=== PATIENT | male | born 1940 | race Caucasian/White ===

== ENCOUNTER 2017-07-25 12:45 | Outpatient (CLI) | payer MEDICARE ==
--- NOTE | 2017-07-25 16:11 | CT ---
EXAM: CERVICAL SPINE CT WITHOUT CONTRAST 07/25/17 HISTORY: Neck fusion ten years ago. 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 TECHNIQUE: Cervical spine CT is performed without contrast. reformatted images are submitted for interpretation . 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 Straightening of the normal cervical lordosis identified. 3.1 mm of anterolisthesis of C4 upon C5, 3 mm of anterolisthesis of C5 upon C6. There is a cervical fusion plate with bilateral transpedicular scars at C6-C7 without perihardware l ucency. Bone plug at the C6-C7 level is noted. Coronal reformatted images demonstrate appropriate alignment of the lateral masses of C1 and C2 as w ell as the intra-articular facets. Odontoid process is intact. Visualized soft tissue neck structures are unremarkable. Mild atherosclerotic disease in both caroti d arteries is noted. There is bilateral apical pleural thickening. Central spinal canal is patent. Varying degrees of for aminal narrowing due to degenerative change. No prevertebral soft tissue swelling or epidural hemato ma. Cervical spine vertebral body height is maintained. No fracture. Limited evaluation of the contents of central canal and neural foramina due to technique. C2-C3: No high grade central canal stenosis or high grade foraminal narrowing. C3-C4: No high grade central canal stenosis. Mild bilateral foraminal narrowing due to degenerative change of the posterior elements. C4-C5: Broad based disc osteophyte complex without high grade central canal stenosis. Degenerative c hange in bilateral uncovertebral joints and bilateral facet hypertrophy result in moderate to severe bilateral foraminal narrowing. C5-C6: Broad based disc osteophyte complex results in mild central canal stenosis. Degenerative welsh ges in the right uncovertebral joint results in moderate to severe right foraminal narrowing. Mild l eft foraminal narrowing due to degenerative change of the uncovertebral joint. C6-C7: Broad based osteophyte ridge with mild central canal stenosis. Degenerative changes in bilate ral uncovertebral joints results in moderate bilateral foraminal narrowing. C7-T1: No high grade central canal stenosis. Neural foramina are mildly narrowed. IMPRESSION: 1. Cervical fusion changes as above. 2. Varying degrees of central canal stenosis and foraminal narrowing as above. 3. Incomplete segmentation of C3-C4, congenital variant. POS: [facility]
== END 2017-07-25 12:46 | disposition home or self-care (01) ==
LOC: TBSIIMAG 12:45
PROVIDERS: ATTEND Neurological Surgery
DX: M54.12 Radiculopathy, cervical region (principal); M48.02 Spinal stenosis, cervical region; M99.51 Intervertebral disc stenosis of neural canal of cervical region; Z98.1 Arthrodesis status
CPT/HCPCS: 72125

== ENCOUNTER 2017-08-21 05:41 | Day surgery (SDC) | payer MEDICARE ==
[2017-08-20 14:44] VITALS: BMI 30.5
--- NOTE | 2017-08-21 03:48 | HP ---
HISTORY OF PRESENT ILLNESS: Mr. Quick returns after having CT scan performed on cervical spine, re ports accident, neck pain, restricted range of motion and pain which radiates to the interscapular s pace. He has had a prior cervical diskectomy and fusion at C6-C7 and autofused at C3-C4. His main issue now is adjacent to the old surgical site degenerative disk disease. Our plan is to move forward with surgical intervention which would be a single level ACDF at C5-C6. PAST MEDICAL HISTORY: Significant for hypertension, prostate disease, hypercholesterolemia, and gas troesophageal reflux disease. CURRENT MEDICATIONS: Aspirin, pantoprazole, sucralfate, finasteride, tamsulosin, hydrochlorothiazid e, losartan, amlodipine, clonidine and pravastatin. PAST SURGICAL HISTORY: Back surgery and ACDF. ALLERGIES: To PENICILLIN. PHYSICAL EXAMINATION: The patient is alert and oriented x3. Gait is normal, no ataxia limited rang e of motion of the neck, 5/5 strength in the upper extremities bilaterally. ASSESSMENT: Neck pain and degenerative disk disease. PLAN: Dr. Darling met with the patient, reviewed imaging and ultimately advocated for C5-C6 ACDF. He explained to the patient the risks, benefits, and alternatives to the procedure. The patient expre ssed understanding and would like to move forward with surgery as discussed. I do believe the patie nt is mentally competent and capable of making medical decisions for himself and we will move forwar d with surgery as planned.
[2017-08-21] MEDS ORDERED: Thrombin 5000 UNITS/5 ML VIAL ONE (06:17)
[2017-08-21] MEDS ORDERED: Lidocaine 2% w/Epinephrine 1:200K 20 ML VIAL ONE (06:17)
[2017-08-21] MEDS ORDERED: Levofloxacin 500 mg/D5W 100 ml Premix Bag ONE (06:29)
[2017-08-21] MEDS ORDERED: Clindamycin/D5W 900 mg/50 ml Premix Bag ONE (06:29)
[2017-08-21 06:44] LABS: #Eosinphils 0.2 thou/uL (0.0-0.7); #Lymphocytes 1.5 thou/uL (1.20-3.40); #Monocytes 0.6 thou/uL (0.11-0.59); #Neutrophils 4.3 thou/uL (1.40-6.50); %Basophils 0.7 % (0.0-1.0); %Eosinophils 3.6 % (0.0-10.0); %Monocytes 8.4 % (0.0-10.0); Hematocrit 43.2 % (42.0-52.0); Mean Platelet Volume 8.8 fL (7.4-10.4); Red Blood Cell (RBC) Count 4.42 mill/uL (4.70-6.10); White Blood Cell (WBC) Count 6.7 thou/uL (4.8-10.8)
[2017-08-21 07:01] LABS: Anion Gap 16 mmol/L (10-20); BUN (Urea Nitrogen) 20 mg/dL (8.4-25.7); Calc. Creatinine Clearance 81 mL/min (70-130); Calcium 9.6 mg/dL (7.8-10.44); Carbon Dioxide 24 mmol/L (23-31); Chloride 104 mmol/L (98-107); Estimated GFR-MDRD 58
[2017-08-21] MEDS ORDERED: Fentanyl 250 MCG/5 ML VIAL ONE (07:02)
[2017-08-21] MEDS ORDERED: ePHEDrine/0.9% NaCl/PF SYRINGE 50 mg/10 ml ONE (07:17)
[2017-08-21] MEDS ORDERED: Dexamethasone 20 MG/5 ML VIAL ONE (07:17)
[2017-08-21] MEDS ORDERED: Succinylcholine Chloride 20 MG/ML 10 ml SYRINGE FS ONE (07:17)
[2017-08-21] MEDS ORDERED: Propofol 200 MG/20 ML VIAL ONE (07:17)
[2017-08-21] MEDS ORDERED: Lidocaine 1% PF 5 ML VIAL ONE (07:17)
[2017-08-21] MEDS ORDERED: PHENYLEPHRINE-NS 100 MCG/ML 10 ML SYRINGE ONE (07:17)
[2017-08-21] MEDS ORDERED: Ondansetron HCl/PF 4 MG/2 ML Vial ONE (07:17)
--- NOTE | 2017-08-21 08:46 | OP ---
DATE OF PROCEDURE: 08/21/2017 SURGEON: Dr. Celio Darling FLEET TECHNICIAN: Arvind Ron PA-C INDICATION: Pain. PREOPERATIVE DIAGNOSES: Degenerative disc disease, neck pain and cervical radiculopathy. PROCEDURE: Removal of anterior instrumentation and anterior cervical discectomy and fusion at C5-6. ANESTHESIA: General. PROCEDURE IN DETAIL: The patient was brought into the operating room and placed under general anest hesia. He was placed on the table in a supine position. A transverse incision was planned over the lateral aspect of the neck. Dr. Delano Calvin was responsible for the surgical exposure which will be dictated in a separate operative note. Once we gained access to the prevertebral space a large a nterior osteophyte was identified which was removed. The patient's anterior cervical plate at the l evel adjacent to the current operative site was identified and removed in total. We then redirected our attention to the C5-6 disc space where all disk material as well as anterior and posterior oste ophytes were removed. After complete decompression, a 6 mm lordotic PEEK cage packed with allograft and autograft material was placed in the interbody space. An anterior cervical plate was then fash ioned in front of the spine and secured with a total of 4 fixed screws. Midline and lateral structu res were then inspected and found to be free from significant trauma. The wound was irrigated. Hem ostasis was maintained throughout. The wound was then closed in anatomic layers and a pressure dres sing was applied. There were no known procedural complications.
[2017-08-21] MEDS ORDERED: Tamsulosin HCl 0.4 MG CAP ONE (09:09)
[2017-08-21] MEDS ORDERED: Tamsulosin HCl 0.4 MG CAP PO SCH (09:15)
--- NOTE | 2017-08-22 09:12 | OP ---
DATE OF PROCEDURE: 08/21/2017 PREOPERATIVE DIAGNOSES: 1. Cervical myelopathy. 2. Need for anterior approach for anterior cervical disk fusion surgery. SURGEON: Dr. Néstor Calvin. GUARD CHIEF: PATRICK Hammond ANESTHESIA: GETA with laryngeal monitoring tube. ESTIMATED BLOOD LOSS: Less than 10 mL. COMPLICATIONS: None. PROCEDURE: The patient taken to the operating room and placed supine on the table. General endotra cheal anesthesia was obtained by the Anesthesia staff. The laryngeal electrodes were confirmed via direct laryngoscopy to be between the vocal cords. The tube was then secured to the midline of the upper lip. The patient was positioned for proper anterior cervical disk fusion surgery. Following this, the patient was prepped and draped in standard surgical fashion, 5 mL of 1% lidocaine with 1:1 00,000 epinephrine was injected into the previous skin incision in a horizontal fashion overlying 2 cm above the clavicle. Incision was made with a 10 blade and carried down through skin, subcutaneou s tissue, and the platysmal layer. Following this, subplatysmal flaps were elevated superiorly and inferiorly. The sternocleidomastoid muscle was identified staying just anterior to the sternocleido mastoid fascia. The vascular contents of the neck were dissected and retracted laterally as the lar yngeal structures and the recurrent laryngeal nerve were retracted medially. Adequate exposure of t he disk space was provided to Dr. Joss Darling. This case was then turned over to his care.
--- NOTE | 2017-08-23 15:56 | EKG ---
Test Reason : PREOP Blood Pressure : / mmHG Vent. Rate : 076 BPM Atrial Rate : 076 BPM P-R Int : 174 ms QRS Dur : 100 ms QT Int : 390 ms P-R-T Axes : 068 -32 062 degrees QTc Int : 438 ms Normal sinus rhythm Left axis deviation Abnormal ECG No previous ECGs available Confirmed by DR. Marítn PALOMO ([id number]) on 08/23/2017 3:56:21 PM Referred By: SHIVA Confirmed By:DR. Martín PALOMO
== END 2017-08-21 11:58 | disposition home or self-care (01) ==
LOC: SDC 05:41
PROVIDERS: ATTEND Neurological Surgery
PROC: 0RG10A0 Fusion of Cervical Vertebral Joint with Interbody Fusion Device, Anterior Approach, Anterior Column, Open Approach (ICD-10-PCS; principal; 2017-08-21)
DX: M50.122 Cervical disc disorder at C5-C6 level with radiculopathy (principal); M25.78 Osteophyte, vertebrae; N40.0 Benign prostatic hyperplasia without lower urinary tract symptoms; I10 Essential (primary) hypertension; E78.00 Pure hypercholesterolemia, unspecified; K21.9 Gastro-esophageal reflux disease without esophagitis; Z79.82 Long term (current) use of aspirin; Z79.899 Other long term (current) drug therapy; Z88.0 Allergy status to penicillin; Z98.1 Arthrodesis status; Z96.1 Presence of intraocular lens; Z90.49 Acquired absence of other specified parts of digestive tract; Z98.890 Other specified postprocedural states; Z87.891 Personal history of nicotine dependence; Z86.14 Personal history of Methicillin resistant Staphylococcus aureus infection
CPT/HCPCS: 36415; 76001; 80048; 85025; 93005; 93010; C1713; J1100; J1956; J2001; J2405; J2704; J3010; J3490

== ENCOUNTER 2021-03-02 08:24 | Inpatient (IN) | payer MEDICARE ==
[2021-03-02 09:21] LABS: #Eosinphils 0.1 thou/uL (0.0-0.7); #Lymphocytes 1.4 thou/uL (1.20-3.40); #Monocytes 0.5 thou/uL (0.11-0.59); #Neutrophils 6.6 thou/uL (1.40-6.50); %Basophils 0.4 % (0.0-1.0); %Eosinophils 1.7 % (0.0-10.0); %Lymphocytes 16.2 % (21.0-51.0); %Monocytes 5.5 % (0.0-10.0); %Neutrophils 76.3 % (42.0-75.0); Hemoglobin 15.3 g/dL (14.0-18.0); Mean Corpuscular HGB CONC 33.1 g/dL (32.0-36.0); Mean Corpuscular Hemoglobin 32.3 pg (27.0-31.0); Mean Corpuscular Volume 97.6 fL (78.0-98.0); Mean Platelet Volume 9.3 fL (7.4-10.4); Platelet Count 233 thou/uL (130-400); RBC Distribution Width 12.1 % (11.5-14.5); Red Blood Cell (RBC) Count 4.73 mill/uL (4.70-6.10); White Blood Cell (WBC) Count 8.7 thou/uL (4.8-10.8)
[2021-03-02 09:44] LABS: ALT (SGPT) 12 U/L (8-55); AST (SGOT) 13 U/L (5-34); Albumin 4.4 g/dL (3.4-4.8); Alkaline Phosphatase 84 U/L (40-110); Anion Gap 15 mmol/L (10-20); BUN (Urea Nitrogen) 26 mg/dL (8.4-25.7); Bilirubin, Total 0.5 mg/dL (0.2-1.2); Calc. Creatinine Clearance 0 mL/min (70-130); Calcium 9.6 mg/dL (7.8-10.44); Carbon Dioxide 21 mmol/L (23-31); Chloride 109 mmol/L (98-107); Globulin 2.8 g/dL (2.4-3.5); Glucose 106 mg/dL (83-110); Lipase 24 U/L (8-78); Protein, Total 7.2 g/dL (5.8-8.1); Sodium 141 mmol/L (136-145)
[2021-03-02] MEDS ORDERED: Ondansetron PF 4 MG/2 ML Vial IVP PRN (12:20)
[2021-03-02] MEDS: Sodium Chloride 0.9% 1,000 ML IV SCH ×2 (13:15→21:12)
[2021-03-02] MEDS ORDERED: Acetaminophen 325 MG TAB PO PRN (13:39)
[2021-03-02] MEDS ORDERED: Ondansetron ODT 4 MG TAB PO PRN (13:42)
[2021-03-02] MEDS ORDERED: Iopamidol-370 76% 500 ML 1 ML ONE (14:47)
[2021-03-02 15:29] VITALS: BMI 26.9
[2021-03-02 18:50] LABS: SARS-CoV-2 PCR by NAA Not Detected (NotDetected)
[2021-03-03 05:49] LABS: #Basophils 0.1 thou/uL (0.0-0.2); #Eosinphils 0.2 thou/uL (0.0-0.7); #Lymphocytes 1.7 thou/uL (1.20-3.40); #Monocytes 0.5 thou/uL (0.11-0.59); #Neutrophils 3.7 thou/uL (1.40-6.50); %Eosinophils 3.8 % (0.0-10.0); %Lymphocytes 27.3 % (21.0-51.0); %Monocytes 7.5 % (0.0-10.0); %Neutrophils 60.5 % (42.0-75.0); Hemoglobin 13.7 g/dL (14.0-18.0); Mean Corpuscular HGB CONC 32.5 g/dL (32.0-36.0); Mean Corpuscular Hemoglobin 31.4 pg (27.0-31.0); Mean Corpuscular Volume 96.6 fL (78.0-98.0); Mean Platelet Volume 9.5 fL (7.4-10.4); Platelet Count 192 thou/uL (130-400); Red Blood Cell (RBC) Count 4.37 mill/uL (4.70-6.10)
[2021-03-03] MEDS: Sodium Chloride 0.9% 1,000 ML IV SCH ×4 (06:02→20:58)
[2021-03-03 06:07] LABS: Anion Gap 11 mmol/L (10-20); BUN (Urea Nitrogen) 20 mg/dL (8.4-25.7); Calc. Creatinine Clearance 73 mL/min (70-130); Calcium 8.9 mg/dL (7.8-10.44); Carbon Dioxide 21 mmol/L (23-31); Chloride 112 mmol/L (98-107); Glucose 79 mg/dL (83-110); Potassium 4.4 mmol/L (3.5-5.1); Sodium 140 mmol/L (136-145)
[2021-03-03] MEDS: Cholestyramine/Aspartame 4 gm Packet PO SCH ×2 (07:44→16:43)
[2021-03-03] MEDS ORDERED: MD-Gastroview 120 ML BOT ONE (11:24)
[2021-03-04 06:24] LABS: Anion Gap 13 mmol/L (10-20); BUN (Urea Nitrogen) 18 mg/dL (8.4-25.7); Calc. Creatinine Clearance 76 mL/min (70-130); Calcium 8.9 mg/dL (7.8-10.44); Carbon Dioxide 20 mmol/L (23-31); Chloride 115 mmol/L (98-107); Glucose 77 mg/dL (83-110); Potassium 3.7 mmol/L (3.5-5.1); Sodium 144 mmol/L (136-145)
[2021-03-04 06:39] LABS: #Basophils 0.1 thou/uL (0.0-0.2); #Eosinphils 0.3 thou/uL (0.0-0.7); #Lymphocytes 1.3 thou/uL (1.20-3.40); #Monocytes 0.5 thou/uL (0.11-0.59); #Neutrophils 4.7 thou/uL (1.40-6.50); %Basophils 0.8 % (0.0-1.0); %Eosinophils 4.4 % (0.0-10.0); %Lymphocytes 18.5 % (21.0-51.0); %Monocytes 7.7 % (0.0-10.0); %Neutrophils 68.6 % (42.0-75.0); Hemoglobin 14.4 g/dL (14.0-18.0); Mean Corpuscular HGB CONC 33.7 g/dL (32.0-36.0); Mean Corpuscular Hemoglobin 32.8 pg (27.0-31.0); Mean Corpuscular Volume 97.3 fL (78.0-98.0); Mean Platelet Volume 9.7 fL (7.4-10.4); Platelet Count 187 thou/uL (130-400); Red Blood Cell (RBC) Count 4.38 mill/uL (4.70-6.10); White Blood Cell (WBC) Count 6.8 thou/uL (4.8-10.8)
[2021-03-04] MEDS: Cholestyramine/Aspartame 4 gm Packet PO SCH (09:22)
[2021-03-04] MEDS: Sodium Chloride 0.9% 1,000 ML IV SCH (20:19)
[2021-03-05] MEDS: Cholestyramine/Aspartame 4 gm Packet PO SCH (08:00)
[2021-03-05] MEDS ORDERED: Simethicone Chewable 80 MG TAB PO PRN (13:00)
[2021-03-05 13:02] VITALS: TEMP 97.7
[2021-03-05] MEDS: Sodium Chloride 0.9% 1,000 ML IV SCH (13:42)
[2021-03-05 14:41] VITALS: BP 154/72
[2021-03-05] MEDS ORDERED: Senokot S 8.6-50 MG TAB PO SCH (21:00)
== END 2021-03-05 15:41 | disposition home or self-care (01) | DRG 392 ==
LOC: ERS 08:24 → T4-B 11:39 → OBSVTOIN 03-03 16:41
PROVIDERS: ADMIT Family Medicine; ATTEND Internal Medicine
DX: K52.9 Noninfective gastroenteritis and colitis, unspecified (principal); N17.9 Acute kidney failure, unspecified; Z20.822 Contact with and (suspected) exposure to COVID-19; I10 Essential (primary) hypertension; E78.00 Pure hypercholesterolemia, unspecified; I95.1 Orthostatic hypotension; R62.7 Adult failure to thrive; E86.0 Dehydration; K21.9 Gastro-esophageal reflux disease without esophagitis; K59.00 Constipation, unspecified; Z90.49 Acquired absence of other specified parts of digestive tract; Z88.0 Allergy status to penicillin; Z87.891 Personal history of nicotine dependence; Z68.26 Body mass index [BMI] 26.0-26.9, adult; Z79.899 Other long term (current) drug therapy
CPT/HCPCS: 36415; 74018; 74177; 74250; 80048; 80053; 83605; 83690; 85025; 87045; 87046; 87077; 87081; 87324; 87427; 87449; 87635; G0378; Q9963; Q9967; U0003; U0005

== ENCOUNTER 2021-07-03 08:51 | Outpatient (CLI) | payer MEDICARE, OTHER ==
[2021-07-03] MEDS ORDERED: Iopamidol-370 76% 500 ML 1 ML ONE (12:15)
== END 2021-07-03 08:52 | disposition home or self-care (01) ==
LOC: BICCT 08:51
PROVIDERS: ATTEND Internal Medicine
DX: R10.11 Right upper quadrant pain (principal); R19.7 Diarrhea, unspecified; K59.00 Constipation, unspecified; I70.0 Atherosclerosis of aorta; Z90.49 Acquired absence of other specified parts of digestive tract
CPT/HCPCS: 74177; 82565; Q9967

== ENCOUNTER 2022-07-26 11:31 | Outpatient (CLI) | payer MEDICARE, OTHER | END 2022-07-26 11:32 | disposition home or self-care (01) | LOC: RAD 11:31 | PROVIDERS: ATTEND Physician Assistant Medical | DX: R10.10 Upper abdominal pain, unspecified (principal); K21.9 Gastro-esophageal reflux disease without esophagitis | CPT/HCPCS: 74018 ==

== ENCOUNTER 2025-08-19 12:22 | Inpatient (IN) | payer MEDICARE, OTHER ==
[2025-08-19] MEDS ORDERED: Ketorolac Tromethamine 30 MG (1 mL) VIAL ONE (14:40)
[2025-08-19 14:56] LABS: Bacteria/HPF None Seen HPF (None Seen); CAUTI Indications for Culture Dysuria,urgency,freq; Glucose, Urine (Dipstick) Normal (Negative); Leukocyte Negative Leu/uL (Negative); Protein, Urine (Dipstick) Negative (Neg-Trace); RBC/HPF 0-3 HPF (0-3); Specific Gravity, Urine 1.009 (1.002-1.036); WBC/HPF 0-3 HPF (0-3)
[2025-08-19 14:58] LABS: Urine Culture Reflex No No
[2025-08-19 15:17] LABS: #Basophils 0.07 10x3/uL (0.0-0.2); #Eosinophils 0.36 10x3/uL (0.0-0.7); #Monocytes 0.59 10x3/uL (0.11-0.59); #Neutrophils 4.42 10x3/uL (1.40-6.50); %Basophils 1.0 % (0.0-1.0); %Eosinophils 5.2 % (0.0-10.0); %Lymphocytes 21.7 % (21.0-51.0); %Monocytes 8.4 % (0.0-10.0); %Neutrophils 63.3 % (42.0-75.0); Hematocrit 42.8 % (42.0-52.0); Hemoglobin 14.1 g/dL (14.0-18.0); Mean Corpuscular Hemoglobin 30.8 pg (27.0-31.0); Mean Corpuscular Volume 93.4 fL (78.0-98.0); Platelet Count 182 10x3/uL (130-400); Red Blood Cell (RBC) Count 4.58 mill/uL (4.70-6.10); White Blood Cell (WBC) Count 6.99 10x3/uL (4.8-10.8)
[2025-08-19] MEDS ORDERED: Ondansetron PF 4 MG/2 ML Vial ONE (15:53)
[2025-08-19] MEDS ORDERED: dilTIAZem 25 MG/5 ML VIAL ONE (17:43)
[2025-08-19 18:15] LABS: ALT (SGPT) 14 U/L (Less than 45); AST (SGOT) 25 U/L (11-34); Albumin 4.1 g/dL (3.1-4.5); Alkaline Phosphatase 64 U/L (40-110); Anion Gap 15 mmol/L (10-20); BUN (Urea Nitrogen) 22 mg/dL (8.4-25.7); Bilirubin, Total 0.6 mg/dL (0.3-1.2); Calc. Creatinine Clearance 0 mL/min (70-130); Calcium 9.4 mg/dL (7.8-10.44); Carbon Dioxide 23 mmol/L (23-31); Chloride 106 mmol/L (98-107); Globulin 2.9 g/dL (2.4-3.5); Glucose 78 mg/dL (83-110); Lipase 44 U/L (8-78); Potassium 4.0 mmol/L (3.5-5.1); Sodium 140 mmol/L (136-145)
[2025-08-19] MEDS: Pantoprazole 40 MG VIAL IVP SCH (20:32)
[2025-08-19] MEDS ORDERED: Finasteride 5 MG TAB PO SCH (21:00)
[2025-08-19] MEDS ORDERED: Simvastatin 10 MG TAB PO SCH (21:00)
[2025-08-19] MEDS: Nitroglycerin 2% Ointment 1 INCH/1 GM Packet TOP SCH (21:52)
[2025-08-20] MEDS: hydrALAZINE 20 MG/ML VIAL SLOW IVP PRN (04:03)
[2025-08-20 05:19] LABS: #Basophils 0.05 10x3/uL (0.0-0.2); #Eosinophils 0.26 10x3/uL (0.0-0.7); #Monocytes 0.75 10x3/uL (0.11-0.59); #Neutrophils 5.29 10x3/uL (1.40-6.50); %Basophils 0.7 % (0.0-1.0); %Eosinophils 3.5 % (0.0-10.0); %Lymphocytes 14.5 % (21.0-51.0); %Monocytes 10.1 % (0.0-10.0); %Neutrophils 70.8 % (42.0-75.0); Hematocrit 37.7 % (42.0-52.0); Hemoglobin 12.2 g/dL (14.0-18.0); Mean Corpuscular Hemoglobin 30.7 pg (27.0-31.0); Mean Corpuscular Volume 95.0 fL (78.0-98.0); Platelet Count 168 10x3/uL (130-400); Red Blood Cell (RBC) Count 3.97 mill/uL (4.70-6.10); White Blood Cell (WBC) Count 7.46 10x3/uL (4.8-10.8)
[2025-08-20 05:36] LABS: Anion Gap 14 mmol/L (10-20); BUN (Urea Nitrogen) 18 mg/dL (8.4-25.7); Calc. Creatinine Clearance 89 mL/min (70-130); Calcium 8.7 mg/dL (7.8-10.44); Carbon Dioxide 21 mmol/L (23-31); Chloride 108 mmol/L (98-107); Glucose 83 mg/dL (83-110); Magnesium 2.0 mg/dL (1.6-2.6); Potassium 3.9 mmol/L (3.5-5.1); Sodium 139 mmol/L (136-145)
[2025-08-20] MEDS ORDERED: MD-Gastroview 120 ML BOT ONE (07:03)
[2025-08-20] MEDS: Pantoprazole 40 MG VIAL IVP SCH (07:54)
[2025-08-20] MEDS: Enoxaparin 40 MG (0.4 mL) SYRINGE SC SCH (07:54)
[2025-08-20] MEDS: Ondansetron PF 4 MG/2 ML Vial IVP PRN (08:19)
[2025-08-20] MEDS: Acetaminophen 325 MG TAB PO PRN (12:13)
[2025-08-20] MEDS: Simvastatin 10 MG TAB PO SCH (21:18)
[2025-08-20] MEDS: Valsartan 80 MG TAB PO SCH (21:18)
[2025-08-20] MEDS: Senokot S 8.6-50 MG TAB PO SCH (21:19)
[2025-08-20] MEDS: Finasteride 5 MG TAB PO SCH (21:19)
[2025-08-21 05:25] LABS: #Basophils 0.05 10x3/uL (0.0-0.2); #Eosinophils 0.28 10x3/uL (0.0-0.7); #Monocytes 0.78 10x3/uL (0.11-0.59); #Neutrophils 4.89 10x3/uL (1.40-6.50); %Basophils 0.7 % (0.0-1.0); %Eosinophils 3.8 % (0.0-10.0); %Lymphocytes 17.8 % (21.0-51.0); %Monocytes 10.6 % (0.0-10.0); %Neutrophils 66.7 % (42.0-75.0); Hematocrit 40.2 % (42.0-52.0); Hemoglobin 13.0 g/dL (14.0-18.0); Mean Corpuscular Hemoglobin 30.6 pg (27.0-31.0); Mean Corpuscular Volume 94.6 fL (78.0-98.0); Platelet Count 173 10x3/uL (130-400); Red Blood Cell (RBC) Count 4.25 mill/uL (4.70-6.10); White Blood Cell (WBC) Count 7.34 10x3/uL (4.8-10.8)
[2025-08-21 05:39] LABS: Anion Gap 13 mmol/L (10-20); BUN (Urea Nitrogen) 21 mg/dL (8.4-25.7); Calc. Creatinine Clearance 81 mL/min (70-130); Calcium 8.9 mg/dL (7.8-10.44); Carbon Dioxide 26 mmol/L (23-31); Chloride 107 mmol/L (98-107); Glucose 95 mg/dL (83-110); Potassium 3.6 mmol/L (3.5-5.1); Sodium 142 mmol/L (136-145)
[2025-08-21] MEDS ORDERED: Senokot S 8.6-50 MG TAB PO PRN (10:03)
[2025-08-21] MEDS: Simethicone Chewable 80 MG TAB PO PRN (10:47)
[2025-08-22 05:45] LABS: #Basophils 0.06 10x3/uL (0.0-0.2); #Eosinophils 0.29 10x3/uL (0.0-0.7); #Monocytes 0.70 10x3/uL (0.11-0.59); #Neutrophils 6.16 10x3/uL (1.40-6.50); %Basophils 0.7 % (0.0-1.0); %Eosinophils 3.3 % (0.0-10.0); %Lymphocytes 17.0 % (21.0-51.0); %Monocytes 8.0 % (0.0-10.0); %Neutrophils 70.4 % (42.0-75.0); Hematocrit 41.7 % (42.0-52.0); Hemoglobin 13.5 g/dL (14.0-18.0); Mean Corpuscular Hemoglobin 30.5 pg (27.0-31.0); Mean Corpuscular Volume 94.3 fL (78.0-98.0); Platelet Count 200 10x3/uL (130-400); Red Blood Cell (RBC) Count 4.42 mill/uL (4.70-6.10); White Blood Cell (WBC) Count 8.75 10x3/uL (4.8-10.8)
[2025-08-22 06:13] LABS: Anion Gap 16 mmol/L (10-20); BUN (Urea Nitrogen) 14 mg/dL (8.4-25.7); Calc. Creatinine Clearance 101 mL/min (70-130); Calcium 8.9 mg/dL (7.8-10.44); Carbon Dioxide 24 mmol/L (23-31); Chloride 102 mmol/L (98-107); Glucose 81 mg/dL (83-110); Potassium 3.5 mmol/L (3.5-5.1); Sodium 138 mmol/L (136-145)
[2025-08-22] MEDS: Pantoprazole 40 MG DR.TAB PO SCH (09:12)
[2025-08-22] MEDS: Simethicone Chewable 80 MG TAB PO SCH (12:48)
[2025-08-22] MEDS ORDERED: Ketorolac Tromethamine 30 MG (1 mL) VIAL IVP PRN (20:12)
[2025-08-23 05:50] LABS: #Basophils 0.04 10x3/uL (0.0-0.2); #Eosinophils 0.14 10x3/uL (0.0-0.7); #Monocytes 0.86 10x3/uL (0.11-0.59); #Neutrophils 7.78 10x3/uL (1.40-6.50); %Basophils 0.4 % (0.0-1.0); %Eosinophils 1.4 % (0.0-10.0); %Lymphocytes 11.0 % (21.0-51.0); %Monocytes 8.6 % (0.0-10.0); %Neutrophils 77.9 % (42.0-75.0); Hematocrit 42.7 % (42.0-52.0); Hemoglobin 13.8 g/dL (14.0-18.0); Mean Corpuscular Hemoglobin 30.2 pg (27.0-31.0); Mean Corpuscular Volume 93.4 fL (78.0-98.0); Platelet Count 195 10x3/uL (130-400); Red Blood Cell (RBC) Count 4.57 mill/uL (4.70-6.10); White Blood Cell (WBC) Count 9.99 10x3/uL (4.8-10.8)
[2025-08-23 06:06] LABS: Anion Gap 17 mmol/L (10-20); BUN (Urea Nitrogen) 10 mg/dL (8.4-25.7); Calc. Creatinine Clearance 105 mL/min (70-130); Calcium 9.1 mg/dL (7.8-10.44); Carbon Dioxide 22 mmol/L (23-31); Chloride 106 mmol/L (98-107); Glucose 104 mg/dL (83-110); Potassium 3.3 mmol/L (3.5-5.1); Sodium 142 mmol/L (136-145)
[2025-08-23] MEDS ORDERED: Iopamidol-370 76% 500 ML MDV (1 ML CHARGE) ONE (11:13)
[2025-08-24] MEDS: Benzonatate 100 MG CAP PO SCH (09:23)
[2025-08-24] MEDS ORDERED: Iopamidol-370 76% 500 ML MDV (1 ML CHARGE) ONE (10:20)
[2025-08-24] MEDS: Furosemide 100 MG (10 mL) VIAL SLOW IVP SCH (10:25)
[2025-08-24] MEDS: Guaifenesin DM 100-10/5 ML UDCUP PO PRN (11:59)
[2025-08-24 12:19] LABS: Anion Gap 16 mmol/L (10-20); BUN (Urea Nitrogen) 11 mg/dL (8.4-25.7); Calc. Creatinine Clearance 90 mL/min (70-130); Calcium 9.2 mg/dL (7.8-10.44); Carbon Dioxide 25 mmol/L (23-31); Chloride 101 mmol/L (98-107); Glucose 90 mg/dL (83-110); Potassium 3.2 mmol/L (3.5-5.1); Sodium 139 mmol/L (136-145)
[2025-08-25 23:45] LABS: Bacteria/HPF 2+ HPF (None Seen); CAUTI Indications for Culture Dysuria,urgency,freq; Glucose, Urine (Dipstick) Normal (Negative); Leukocyte 500 Leu/uL (Negative); Protein, Urine (Dipstick) 30 mg/dL (Neg-Trace); RBC/HPF 0-3 HPF (0-3); Specific Gravity, Urine 1.025 (1.002-1.036); WBC/HPF Greater than 50 HPF (0-3)
[2025-08-25 23:48] LABS: Urine Culture Reflex Yes Yes
[2025-08-26 17:22] LABS: Influenza A by NAA Not Detected (NotDetected); Influenza B by NAA Not Detected (NotDetected); SARS-CoV-2 NAA Rapid Test Not Detected (NotDetected)
[2025-08-26] MEDS ORDERED: Glycerin Adult Supp. (12 ct jar) PR PRN (17:27)
[2025-08-27] MEDS: Metoclopramide HCl 10 MG (2 mL) VIAL IVP PRN (04:36)
[2025-08-27 05:12] LABS: #Basophils 0.06 10x3/uL (0.0-0.2); #Eosinophils Less than 0.03 10x3/uL (0.0-0.7); #Monocytes 1.95 10x3/uL (0.11-0.59); #Neutrophils 14.73 10x3/uL (1.40-6.50); %Basophils 0.3 % (0.0-1.0); %Eosinophils 0.1 % (0.0-10.0); %Lymphocytes 5.3 % (21.0-51.0); %Monocytes 10.9 % (0.0-10.0); %Neutrophils 82.6 % (42.0-75.0); Hematocrit 39.7 % (42.0-52.0); Hemoglobin 13.1 g/dL (14.0-18.0); Mean Corpuscular Hemoglobin 31.0 pg (27.0-31.0); Mean Corpuscular Volume 94.1 fL (78.0-98.0); Platelet Count 266 10x3/uL (130-400); Red Blood Cell (RBC) Count 4.22 mill/uL (4.70-6.10); White Blood Cell (WBC) Count 17.85 10x3/uL (4.8-10.8)
[2025-08-27 05:30] LABS: Anion Gap 15 mmol/L (10-20); BUN (Urea Nitrogen) 25 mg/dL (8.4-25.7); Calc. Creatinine Clearance 64 mL/min (70-130); Calcium 9.5 mg/dL (7.8-10.44); Carbon Dioxide 27 mmol/L (23-31); Chloride 96 mmol/L (98-107); Glucose 119 mg/dL (83-110); Potassium 3.0 mmol/L (3.5-5.1); Sodium 135 mmol/L (136-145)
[2025-08-27] MEDS: VANCOMYCIN 2 GRAM/400 ML BAG 2 GM in Premix 1 BAG IVPB SCH (10:14)
[2025-08-27] MEDS: Potassium Chloride 20 MEQ in Premix 1 BAG IVPB SCH (14:02)
[2025-08-28 05:31] LABS: #Basophils 0.10 10x3/uL (0.0-0.2); #Eosinophils 0.24 10x3/uL (0.0-0.7); #Monocytes 1.76 10x3/uL (0.11-0.59); #Neutrophils 12.11 10x3/uL (1.40-6.50); %Basophils 0.6 % (0.0-1.0); %Eosinophils 1.6 % (0.0-10.0); %Lymphocytes 6.9 % (21.0-51.0); %Monocytes 11.4 % (0.0-10.0); %Neutrophils 78.2 % (42.0-75.0); Hematocrit 38.7 % (42.0-52.0); Hemoglobin 12.5 g/dL (14.0-18.0); Mean Corpuscular Hemoglobin 30.6 pg (27.0-31.0); Mean Corpuscular Volume 94.9 fL (78.0-98.0); Platelet Count 229 10x3/uL (130-400); Red Blood Cell (RBC) Count 4.08 mill/uL (4.70-6.10); White Blood Cell (WBC) Count 15.48 10x3/uL (4.8-10.8)
[2025-08-28 05:40] LABS: Anion Gap 12 mmol/L (10-20); BUN (Urea Nitrogen) 21 mg/dL (8.4-25.7); Calc. Creatinine Clearance 82 mL/min (70-130); Calcium 8.5 mg/dL (7.8-10.44); Carbon Dioxide 29 mmol/L (23-31); Chloride 101 mmol/L (98-107); Glucose 78 mg/dL (83-110); Potassium 3.1 mmol/L (3.5-5.1); Sodium 139 mmol/L (136-145)
[2025-08-28 05:45] LABS: Vancomycin, Random 10.3 ug/mL (See Comment)
[2025-08-28] MEDS: Potassium Chloride 20 MEQ in Premix 1 BAG IVPB SCH (10:53)
[2025-08-28] MEDS: Magnesium 2 GM/50 ML(in water) 2 GM in Premix 1 BAG IVPB SCH (10:53)
[2025-08-28] MEDS: Glycerin Adult Supp. (12 ct jar) PR SCH (14:43)
[2025-08-28] MEDS: Vicks VapoRub 50 gm Jar TOP PRN (15:28)
[2025-08-28] MEDS: cefTRIAXone\\ROCEPHIN 2 GM in Sodium Chloride 0.9% 100 ML IVPB SCH (19:41)
[2025-08-29] MEDS: Finasteride 5 MG TAB PO SCH (03:35)
[2025-08-29 06:49] LABS: #Basophils 0.12 10x3/uL (0.0-0.2); #Eosinophils 0.37 10x3/uL (0.0-0.7); #Monocytes 1.59 10x3/uL (0.11-0.59); #Neutrophils 11.83 10x3/uL (1.40-6.50); %Basophils 0.8 % (0.0-1.0); %Eosinophils 2.3 % (0.0-10.0); %Lymphocytes 8.5 % (21.0-51.0); %Monocytes 10.0 % (0.0-10.0); %Neutrophils 74.1 % (42.0-75.0); Hematocrit 39.1 % (42.0-52.0); Hemoglobin 12.5 g/dL (14.0-18.0); Mean Corpuscular Hemoglobin 30.0 pg (27.0-31.0); Mean Corpuscular Volume 94.0 fL (78.0-98.0); Platelet Count 272 10x3/uL (130-400); Red Blood Cell (RBC) Count 4.16 mill/uL (4.70-6.10); White Blood Cell (WBC) Count 15.96 10x3/uL (4.8-10.8)
[2025-08-29 07:07] LABS: Anion Gap 14 mmol/L (10-20); BUN (Urea Nitrogen) 15 mg/dL (8.4-25.7); Calc. Creatinine Clearance 121 mL/min (70-130); Calcium 8.7 mg/dL (7.8-10.44); Carbon Dioxide 29 mmol/L (23-31); Chloride 101 mmol/L (98-107); Glucose 91 mg/dL (83-110); Potassium 2.8 mmol/L (3.5-5.1); Sodium 141 mmol/L (136-145)
[2025-08-29] MEDS: Potassium Chloride 20 MEQ in Premix 1 BAG IVPB SCH (09:42)
[2025-08-29] MEDS: Lactulose 20 GM (30 mL) UDCUP PO SCH ×2 (11:27→15:38)
[2025-08-29 14:21] VITALS: BMI 28.6
[2025-08-30 10:10] LABS: Anion Gap 16 mmol/L (10-20); BUN (Urea Nitrogen) 13 mg/dL (8.4-25.7); Calc. Creatinine Clearance 125 mL/min (70-130); Calcium 8.6 mg/dL (7.8-10.44); Carbon Dioxide 27 mmol/L (23-31); Chloride 101 mmol/L (98-107); Glucose 114 mg/dL (83-110); Potassium 2.7 mmol/L (3.5-5.1); Sodium 141 mmol/L (136-145)
[2025-08-30 10:29] LABS: Hematocrit 39.9 % (42.0-52.0); Hemoglobin 12.9 g/dL (14.0-18.0); Mean Corpuscular Hemoglobin 30.3 pg (27.0-31.0); Mean Corpuscular Volume 93.7 fL (78.0-98.0); Platelet Count 307 10x3/uL (130-400); Red Blood Cell (RBC) Count 4.26 mill/uL (4.70-6.10); White Blood Cell (WBC) Count 14.96 10x3/uL (4.8-10.8)
[2025-08-30 11:15] LABS: Burr Cells SLIGHT = 2-5 cells HPF (0-1); Giant Platelets 1.0 % (0-5); Macrocytosis SLIGHT = 6-15 cells HPF (0-5); Platelet Adequacy Comment Platelets Normal; Polychromasia SLIGHT = 2-3 cells HPF (0-2); Smudge Cells 4.8 %; Toxic Granulation MODERATE
[2025-08-30] MEDS: Potassium Bicarbonate/Cit Ac 20 MEQ TAB PO SCH (12:22)
[2025-08-30] MEDS: FLU (Fluad Triv) 25-26 (65UP)PF 45 MCG/0.5 ML Syringe IM ONE (15:03)
[2025-08-30 17:10] VITALS: BMI 28.6
[2025-08-31 04:49] LABS: Hematocrit 40.9 % (42.0-52.0); Hemoglobin 13.3 g/dL (14.0-18.0); Mean Corpuscular Hemoglobin 30.4 pg (27.0-31.0); Mean Corpuscular Volume 93.4 fL (78.0-98.0); Platelet Count 332 10x3/uL (130-400); Red Blood Cell (RBC) Count 4.38 mill/uL (4.70-6.10); White Blood Cell (WBC) Count 13.46 10x3/uL (4.8-10.8)
[2025-08-31 04:53] LABS: Anion Gap 16 mmol/L (10-20); BUN (Urea Nitrogen) 11 mg/dL (8.4-25.7); Calc. Creatinine Clearance 108 mL/min (70-130); Calcium 8.9 mg/dL (7.8-10.44); Carbon Dioxide 27 mmol/L (23-31); Chloride 101 mmol/L (98-107); Glucose 106 mg/dL (83-110); Potassium 3.5 mmol/L (3.5-5.1); Sodium 140 mmol/L (136-145)
[2025-08-31 05:25] LABS: Plasma Cells 1 % (0-0); Platelet Adequacy Comment Platelets Normal; Smudge Cells 11.8 %
[2025-08-31 07:25] LABS: Vancomycin, Random 7.8 ug/mL (See Comment)
[2025-08-31] MEDS ORDERED: Vancomycin 1.25 GM / NS 250 ML VIAL-2-BAG IVPB SCH (10:00)
[2025-08-31 13:13] VITALS: TEMP 97.5
[2025-08-31 15:27] VITALS: BP 148/74
== END 2025-08-31 15:33 | disposition home or self-care (01) | DRG 388 ==
LOC: ERS 12:22 → SURG A 18:07 → UNDODISIN 08-29 12:10
PROVIDERS: ADMIT Student in an Organized Health Care Education/Training Program; ATTEND Hospitalist
PROC: 0D9670Z Drainage of Stomach with Drainage Device, Via Natural or Artificial Opening (ICD-10-PCS; principal; 2025-08-29)
PROC: 3E02340 Introduction of Influenza Vaccine into Muscle, Percutaneous Approach (ICD-10-PCS; 2025-08-30)
PROC: 3E03329 Introduction of Other Anti-infective into Peripheral Vein, Percutaneous Approach (ICD-10-PCS; 2025-08-31)
DX: K56.7 Ileus, unspecified (principal); J15.9 Unspecified bacterial pneumonia; N39.0 Urinary tract infection, site not specified; M48.56XA Collapsed vertebra, not elsewhere classified, lumbar region, initial encounter for fracture; K59.09 Other constipation; K56.609 Unspecified intestinal obstruction, unspecified as to partial versus complete obstruction; I10 Essential (primary) hypertension; E78.5 Hyperlipidemia, unspecified; N40.0 Benign prostatic hyperplasia without lower urinary tract symptoms; E86.0 Dehydration; I16.0 Hypertensive urgency; D72.829 Elevated white blood cell count, unspecified; J06.9 Acute upper respiratory infection, unspecified; Z98.890 Other specified postprocedural states; Z90.49 Acquired absence of other specified parts of digestive tract; Z88.0 Allergy status to penicillin; Z23 Encounter for immunization; Z87.891 Personal history of nicotine dependence
CPT/HCPCS: 36415; 36416; 71045; 71275; 74018; 74176; 74177; 74250; 76770; 80048; 80053; 80202; 81001; 83605; 83690; 83735; 84443; 85025; 87040; 87077; 87086; 87186; 87636; 93005; 94640; 96374; 96375; 96376; J0360; J0692; J0696; J1650; J1885; J1940; J2060; J2270; J2272; J2405; J2470; J2765; J3375; J3475; J3480; J7030; J7120; Q9963; Q9967